=== PATIENT | female | born 1975 | race Caucasian/White ===

== ENCOUNTER 2016-09-19 11:03 | Emergency (ER) | payer OTHER, MEDICAID ==
[~2016-09-19] VITALS: Ht 154.9 cm; Wt 62.6 kg
[2016-09-19 11:13] VITALS: BP 143/78; PULSE 76; RESP 18; TEMP 98.3; O2SAT 100
[2016-09-19] MEDS ORDERED: ONDANSETRON 4 MG ODT TAB PO ONE (12:15)
[2016-09-19] MEDS ORDERED: HYDROcodone/ACETAMIN 5-325 MG TAB (NORCO/ VICODIN) PO ONE (12:15)
[2016-09-19 12:45] VITALS: BP 141/74; PULSE 74; RESP 17; TEMP 98.3; O2SAT 100
== END 2016-09-19 12:45 | disposition home or self-care (01) ==
LOC: SED 11:03
DX: S63.501A Unspecified sprain of right wrist, initial encounter (principal); Z88.5 Allergy status to narcotic agent; Z71.6 Tobacco abuse counseling; W01.0XXA Fall on same level from slipping, tripping and stumbling without subsequent striking against object, initial encounter; Y93.89 Activity, other specified; Y92.39 Other specified sports and athletic area as the place of occurrence of the external cause; Y99.8 Other external cause status
CPT/HCPCS: 29125; 73080; 73110; 81025; 99284; Q0162